=== PATIENT | female | born 1980 | race Caucasian/White ===

== ENCOUNTER 2017-01-23 23:23 | Emergency (ER) | payer SELFPAY ==
--- NOTE | 2017-01-23 23:58 | ED Physician Documentation ---
Female Urogenital Problems - HPI Stated Complaint: vaginal pain Chief Complaint: Female Urogenital Problems Onset: days ago (3 days) Severity: mild Further Comments: yes - Vaginal Bleeding LNMP (Last Known Menstrual Period): 01/18/17 Care: Yes Sexual History: active - Associated Symptoms Urinary Symptoms: none. denies: blood in urine, frequent urination, discomfort w/ urination, burning w/ urination Discharge: vaginal discharge - ROS CONST: none. denies: fever - PAST HX Past History: none Other History: none Surgeries/Procedures: cholecystectomy Allergies/Adverse Reactions: Allergies Allergy/AdvReac Type Severity Reaction Status Date / Time No Known Allergies Allergy Verified 01/23/17 23:36 Home Medications: Ambulatory Orders Medication Instructions Recorded Norgestimate-Ethinyl Estradiol 1 tab PO DIRECTED 01/23/17 [Tri-Linyah Tablet] - SOCIAL HX Smoking History: non-smoker Alcohol Use: none Drug Use: none - FAMILY HX Family History: other (DM) - VITAL SIGNS Vital Signs: Vital Signs Temp Pulse Resp BP Pulse Ox 98.9 F 72 16 99 01/23/17 23:23 01/23/17 23:23 01/23/17 23:23 01/23/17 23:23 - REVIEWED ASSESSMENTS Nursing Assessment Reviewed: Yes Vitals Reviewed: Yes Female Urogenital Problems - EXAM General Appearance: no acute distress, alert Neck: nml inspection Respiratory: no resp. distress, breath sounds nml. No: wheezes, rales, rhonchi CVS: reg rate & rhythm, heart sounds normal, equal pulses Abdomen: soft, non-tender, no organomegaly, no distention, nml bowel sounds. No : tenderness Pelvic: external exam nml, speculum exam nml, other (tipped uterus). No: vaginal discharge, active bleeding Back: non-tender Skin: other (irritation to the paerineal area over a episiotomy scar. ) Neuro: mood/affect nml, cognition normal Discharge Clincal Impression: Perineal irritation in female Referrals: Mohamud Joy MD [Primary Care Provider] - 2 Days Additional Instructions: Take a small amount of vasoline or triple antibiotic ointment and massage into the area twice a day. If you continue to have some problems to follow-up with your primary care provider. Try taking a sitz bath several times a week. Dry the area well. Home Medications: Ambulatory Orders Norgestimate-Ethinyl Estradiol [Tri-Linyah Tablet] 1 tab PO DIRECTED Condition: Stable Disposition: 01 HOME, SELF-CARE Decision to Admit: NO Date of Decison to Admit: 01/24/17 Decision Time: 00:17
[2017-01-24 00:37] VITALS: BP 151/89
[2017-01-24 06:05] LABS: APPEARANCE,URINE CLEAR (CLEAR); COLOR,URINE YELLOW (YELLOW); OCCULT BLOOD,URINE 2+ (NEGATIVE)
[2017-01-24 06:06] LABS: UROBILINOGEN URINE 0.2 Eu (0.2-1.0)
== END 2017-01-24 00:28 | disposition home or self-care (01) ==
LOC: ED 23:23
DX: K65.9 Peritonitis, unspecified (principal)
CPT/HCPCS: 81002; 87086; 99283